=== PATIENT | male | born 1960 | race Caucasian/White ===

== ENCOUNTER 2017-07-06 09:10 | Day surgery (SDC) | payer OTHER ==
[2017-07-06 13:15] LABS: TYPE AND SCREEN 1 1
[2017-07-06] MEDS ORDERED: PROPOFOL 40 ML ×2 (16:48)
[2017-07-06] MEDS ORDERED: PROPOFOL 20 ML ×4 (16:49)
== END 2017-07-06 18:23 | disposition home or self-care (01) ==
LOC: GIL 09:10 → SDS 09:10 → GIL 09:10 → SDS 12:47 → GIL 18:23
DX: K74.60 Unspecified cirrhosis of liver (principal); G40.901 Epilepsy, unspecified, not intractable, with status epilepticus (principal); H66.92 Otitis media, unspecified, left ear; I85.10 Secondary esophageal varices without bleeding; K63.5 Polyp of colon; J96.10 Chronic respiratory failure, unspecified whether with hypoxia or hypercapnia; K31.9 Disease of stomach and duodenum, unspecified; P27.1 Bronchopulmonary dysplasia originating in the perinatal period; K76.6 Portal hypertension; Z99.11 Dependence on respirator [ventilator] status; K31.89 Other diseases of stomach and duodenum; Z93.1 Gastrostomy status; K29.80 Duodenitis without bleeding; Z93.0 Tracheostomy status; E11.9 Type 2 diabetes mellitus without complications
CPT/HCPCS: 36430; 82962; 86644; 86850; 86900; 86901; 88305